=== PATIENT | male | born 1950 | race Caucasian/White ===

== ENCOUNTER 2016-08-19 08:33 | Day surgery (SDC) | payer BC ==
--- NOTE | ~2016-08-19 | EGD ---
EGD REPORT [facility] [address] [place] [id number] NAME: MARYANA GUERRERO : [birth year] STATUS : REG [facility]#: [id number] AGE: 66 ADM/REG DATE : 08/19/16 MR#: [id number] REPORT SERV DATE: 08/19/16 DICTATED BY: DATE: REPORT STATUS : Draft TRANSCRIBED BY: [employer] DATE: 08/19/16 [facility] Patient Name: Maryana Guerrero Date of : 1950 Attending MD: KENNA NAGY MD Procedure Date No Time: 08/19/2016 Procedure: Colonoscopy Indications: Heme positive stool, Weight loss Referring MD: YASH MCGRATH Medicines: Propofol per Anesthesia Complications: No immediate complications. Procedure: Pre-Anesthesia Assessment: - ASA Grade Assessment: III - A patient with severe systemic disease. After I obtained informed consent, the scope was passed under direct vision. Throughout the procedure, the patient's blood pressure, pulse, and oxygen saturations were monitored continuously. The CF [id number] was introduced through the anus and advanced to the terminal ileum. The appendiceal orifice, terminal ileum and rectum were photographed. The colonoscopy was performed without difficulty. The patient tolerated the procedure well. The quality of the bowel preparation was good. Findings: The perianal and digital rectal examinations were normal. The terminal ileum appeared normal. The colon (entire examined portion) appeared normal. Three sessile polyps were found in the transverse colon. The polyps were 2 to 3 mm in size. These polyps were removed with a cold biopsy forceps. Resection and retrieval were complete. A sessile polyp was found in the descending colon. The polyp was 2 mm in size. The polyp was removed with a cold biopsy forceps. Resection and retrieval were complete. A sessile polyp was found in the descending colon. The polyp was 4 mm in size. The polyp was removed with a cold snare. Resection and retrieval were complete. A sessile polyp was found in the descending colon. The polyp was 5 mm in size. The polyp was removed with a hot snare. Resection and retrieval were complete. Three sessile polyps were found in the sigmoid colon. The polyps were 5 to 8 mm in size. These polyps were removed with a hot snare. Resection and retrieval were complete. A benign appearing sessile polyp was found in the rectum in the rectum. The polyp was 3 mm in size. The polyp was removed with a cold biopsy EGD REPORT [address] [place]. [address] NAME: MARYANA GUERRERO : [birth year] STATUS : REG [facility] [place] PAT#: [id number] AGE: 66 ADM/REG DATE : 08/19/16 MR#: [id number] REPORT SERV DATE: 08/19/16 DICTATED BY: DATE: REPORT STATUS : Draft TRANSCRIBED BY: [employer] DATE: 08/19/16 forceps. Resection and retrieval were complete. Non-bleeding internal hemorrhoids were found during retroflexion and were mild, small and Grade I (internal hemorrhoids that do not prolapse). Impression: - The examined portion of the ileum was normal. - The entire examined colon is normal. - Three 2 to 3 mm polyps in the transverse colon. Resected and retrieved. - One 2 mm polyp in the descending colon. Resected and retrieved. - One 4 mm polyp in the descending colon. Resected and retrieved. - One 5 mm polyp in the descending colon. Resected and retrieved. - Three 5 to 8 mm polyps in the sigmoid colon. Resected and retrieved. - The entire examined colon is normal. - One benign appearing 3 mm polyp in the rectum in the rectum. Resected and retrieved. - Non-bleeding internal hemorrhoids. Recommendation: - Patient has a contact number available for emergencies. The signs and symptoms of potential delayed complications were discussed with the patient. Return to normal activities tomorrow. Written discharge instructions were provided to the patient. - Return to previous diet. - Continue present medications. - Await pathology results. - Repeat colonoscopy in 3 - 5 years for surveillance based on pathology results. - Return to my office as previously scheduled. - Discharge patient to home. Procedure Code(s): --- Professional --- 21543, Colonoscopy, flexible, proximal to splenic flexure; with removal of tumor(s), polyp(s), or other lesion(s) by snare technique 56898, 59, Colonoscopy, flexible, proximal to splenic flexure; with biopsy, single or multiple Diagnosis Code(s): --- Professional --- K64.0, First degree hemorrhoids K62.1, Rectal polyp D12.5, Benign neoplasm of sigmoid colon D12.4, Benign neoplasm of descending colon D12.3, Benign neoplasm of transverse colon EGD REPORT [place] [address] [address] [id number] NAME: MARYANA GUERRERO : [birth year] STATUS : REG [facility]#: [id number] AGE: 66 ADM/REG DATE : 08/19/16 MR#: [id number] REPORT SERV DATE: 08/19/16 DICTATED BY: DATE: REPORT STATUS : Draft TRANSCRIBED BY: [employer] DATE: 08/19/16 R19.5, Other fecal abnormalities R63.4, Abnormal weight loss CPT copyright 2013 [employer]. All rights reserved. The codes documented in this report are preliminary and upon application internship review may be revised to meet current compliance requirements. Kenna Nagy MD KENNA NAGY MD 08/19/2016 12:13 PM This report has been signed electronically. Number of Addenda: 0 Note Initiated On: 08/19/2016 10:50 AM Scope Withdrawal Time 0 hours 29 minutes 23 seconds [address] [id number]
[~2016-08-19 08:33] MED LIST: ALEVE220 MG PO; AMB10 PO; AMB5 PO; ANOROELLIPTA INH; ASAB PO; ATV.5 PO; BEN25 PO; COMBIVENT RESPIM4 GM INH; COR20 PO; COR40 PO; CYANO1000T PO; DEXILANT PO; FLOMAX4 PO; HYGROTON 25 MG25 MG PO; KDUR20 PO; LIPITOR10 PO; MELATONIN5 M1 PO; METHIMAZOLE5 MG OR; MULTIVIT/MIN PO; NORV25 PO; PREV30 PO; PROVENTSOL INH; REST15 PO; SINGULAIR1 PO; SPIRIVA INH; SUPER B COMPLEX OR; XARELTO15 MG PO
[2016-10-20] MEDS ORDERED: REST15 PO (17:02)
[2016-10-20] MEDS ORDERED: NORV25 PO (17:25)
[2016-10-20] MEDS ORDERED: ALBUTEROL0.083 % INH (17:25)
[2016-10-20] MEDS ORDERED: LIPITOR10 PO (17:26)
[2016-10-20] MEDS ORDERED: COMBIVENT RESPIM4 GM INH (17:27)
== END 2016-08-19 23:59 | disposition home or self-care (01) ==
LOC: DMU 08:33
PROVIDERS: Internal Medicine Gastroenterology
PROC: 0DBN8ZX Excision of Sigmoid Colon, Via Natural or Artificial Opening Endoscopic, Diagnostic (ICD-10-PCS; 2016-08-19)
PROC: 0DBM8ZX Excision of Descending Colon, Via Natural or Artificial Opening Endoscopic, Diagnostic (ICD-10-PCS; 2016-08-19)
PROC: 0DBL8ZX Excision of Transverse Colon, Via Natural or Artificial Opening Endoscopic, Diagnostic (ICD-10-PCS; principal; 2016-08-19 09:30)
PROC: 0DBP8ZX Excision of Rectum, Via Natural or Artificial Opening Endoscopic, Diagnostic (ICD-10-PCS; 2016-08-19 09:30)
DX: D12.5 Benign neoplasm of sigmoid colon (principal); D12.4 Benign neoplasm of descending colon; D12.3 Benign neoplasm of transverse colon; K62.1 Rectal polyp; K64.0 First degree hemorrhoids; J44.9 Chronic obstructive pulmonary disease, unspecified; I48.91 Unspecified atrial fibrillation; G47.30 Sleep apnea, unspecified; I10 Essential (primary) hypertension; I25.10 Atherosclerotic heart disease of native coronary artery without angina pectoris; Z88.5 Allergy status to narcotic agent; Z88.8 Allergy status to other drugs, medicaments and biological substances; Z90.89 Acquired absence of other organs; Z90.49 Acquired absence of other specified parts of digestive tract; Z98.890 Other specified postprocedural states
CPT/HCPCS: 88305